=== PATIENT | female | born 1940 ===

== ENCOUNTER 2017-03-26 08:50 | Day surgery (SDC) | payer OTHER ==
[2017-03-26 08:50] VITALS: BP 155/86
[~2017-03-26 08:50] MED LIST: LIDOcaine 1%/PF (10mg/ml) 5ml vial ONE
[2017-03-26 08:55] VITALS: BP 155/86
[2017-03-26 08:58] VITALS: BP 153/87
[2017-03-26 09:00] VITALS: BP 156/89
[2017-03-26 09:03] VITALS: BP 153/84
== END 2017-03-26 09:15 | disposition home or self-care (01) ==
LOC: SSTAY O 08:50
PROVIDERS: ATTEND Radiology Vascular & Interventional Radiology
DX: Z45.2 Encounter for adjustment and management of vascular access device (principal); I10 Essential (primary) hypertension
CPT/HCPCS: 36589; A6257; A6449; J2001